=== PATIENT | female | born 1995 | race Caucasian/White ===

== ENCOUNTER 2016-11-17 07:58 | Emergency (ER) | payer MEDICAID ==
[~2016-11-17] VITALS: Ht 157.5 cm; Wt 80.9 kg
[~2016-11-17 07:58] MED LIST: HYDR2TAB13 PO; PREN1CAP15 PO
[2016-11-17 08:01] VITALS: BP 117/79
[2016-11-17] MEDS ORDERED: BUPIVACAINE/PF 0.5% ONE (08:28)
[2016-11-17] MEDS ORDERED: LIDOCAINE 1%, 20ML ONE (08:28)
[2016-11-17] MEDS ORDERED: SILVER NITRATE STICK TP ONE (09:04)
[2016-11-17] MEDS ORDERED: BUPIVACAINE 0.25% INFIL ONE (10:00)
[2016-11-17] MEDS ORDERED: LIDOCAINE 1%, 20ML INFIL ONE (10:00)
== END 2016-11-17 09:52 | disposition home or self-care (01) ==
LOC: ED 09:12
DX: S91.201A Unspecified open wound of right great toe with damage to nail, initial encounter (principal); Z90.49 Acquired absence of other specified parts of digestive tract; X58.XXXA Exposure to other specified factors, initial encounter; Y93.89 Activity, other specified; Y92.89 Other specified places as the place of occurrence of the external cause; Y99.8 Other external cause status
CPT/HCPCS: 11750

== ENCOUNTER 2017-02-10 12:42 | Emergency (ER) | payer MEDICAID ==
[~2017-02-10] VITALS: Ht 154.9 cm; Wt 84.8 kg
[~2017-02-10 12:42] MED LIST changes: -HYDR2TAB13 PO; +HYDR2TAB29 PO
[2017-02-10 12:52] VITALS: BP 117/78
[2017-02-10 14:36] LABS: HEMATOCRIT 44.7 % (34.6-47.8); HEMOGLOBIN 14.6 g/dL (11.7-16.4); WHITE BLOOD COUNT 8.6 x10^3/uL (3.4-10)
[2017-02-10 14:44] LABS: ASPARTATE AMINO TRANSFERASE 14 U/L (15-37); BLOOD UREA NITROGEN 10 mg/dL (7-18)
[2017-02-10] MEDS ORDERED: ALBU18HF INH (14:45)
[2017-02-10 15:42] LABS: PATH.CAST-FLAG NOT PRESENT; SPERM-FLAG NOT PRESENT; SRC-FLAG NOT PRESENT; XTAL-FLAG NOT PRESENT; YLC-FLAG NOT PRESENT
== END 2017-02-10 15:38 | disposition home or self-care (01) ==
LOC: ED 14:51
DX: R10.11 Right upper quadrant pain (principal); R19.7 Diarrhea, unspecified; R11.0 Nausea; J45.909 Unspecified asthma, uncomplicated; F12.10 Cannabis abuse, uncomplicated
CPT/HCPCS: 36415; 80053; 81001; 83690; 84703; 85025; 99284

== ENCOUNTER 2017-02-13 07:16 | Emergency (ER) | payer MEDICAID ==
[~2017-02-13] VITALS: Ht 154.9 cm; Wt 85.0 kg
[~2017-02-13 07:16] MED LIST changes: +ALBU18HF INH
[2017-02-13] MEDS ORDERED: ONDANSETRON 2MG/ML, 2ML ONE (07:47)
[2017-02-13] MEDS ORDERED: SODIUM CHLORIDE 0.9% 1,000ML IVBOLUS ONE (08:00)
[2017-02-13] MEDS ORDERED: ONDANSETRON 2MG/ML, 2ML IVPush ONE (08:00)
[2017-02-13] MEDS ORDERED: SODIUM CHLORIDE FLUSH 10ML SYR IVF ONE (08:00)
[2017-02-13 08:14] LABS: HEMOGLOBIN 14.3 g/dL (11.7-16.4); WHITE BLOOD COUNT 7.5 x10^3/uL (3.4-10)
[2017-02-13 08:25] LABS: ASPARTATE AMINO TRANSFERASE 18 U/L (15-37); BLOOD UREA NITROGEN 7 mg/dL (7-18)
[2017-02-13] MEDS ORDERED: OMNIPAQUE 350 MG/ML, 100ML BOTTLE ONE (09:12)
[2017-02-13 09:53] VITALS: BP 112/75
== END 2017-02-13 10:08 | disposition home or self-care (01) ==
LOC: ED 07:43
DX: R10.13 Epigastric pain (principal); J45.909 Unspecified asthma, uncomplicated
CPT/HCPCS: 36415; 74177; 76700; 80053; 81001; 83690; 84703; 85025; 85610; 96361; 96374; 99285; J2405; J7030; Q9967

== ENCOUNTER 2017-08-18 18:47 | Emergency (ER) | payer MEDICAID, OTHER ==
[~2017-08-18] VITALS: Ht 157.5 cm; Wt 89.9 kg
[2017-08-18 19:03] VITALS: BP 113/75
== END 2017-08-18 22:15 | disposition home or self-care (01) ==
LOC: ED 22:09
DX: S16.1XXA Strain of muscle, fascia and tendon at neck level, initial encounter (principal); M62.830 Muscle spasm of back; J45.909 Unspecified asthma, uncomplicated; Z90.49 Acquired absence of other specified parts of digestive tract; V89.2XXA Person injured in unspecified motor-vehicle accident, traffic, initial encounter; Y93.89 Activity, other specified; Y92.89 Other specified places as the place of occurrence of the external cause; Y99.9 Unspecified external cause status
CPT/HCPCS: 72050; 72072; 99284

== ENCOUNTER 2017-09-13 09:43 | Emergency (ER) | payer MEDICAID, OTHER ==
[~2017-09-13] VITALS: Ht 157.5 cm; Wt 88.2 kg
[2017-09-13] MEDS ORDERED: MAALOX/HYOSCYAMINE/LIDOCAINE 45 ML BTL PO ONE (11:00)
[2017-09-13 11:19] LABS: BASOPHILS # (AUTO) 0.02 x10^3/uL (0-0.1); BASOPHILS % (AUTO) 0 % (0-1); EOSINOPHILS % (AUTO) 3 % (1-7); LYMPHOCYTES # (AUTO) 2.11 x10^3/uL (1-3.4); LYMPHOCYTES % (AUTO) 31 % (22-44); MD NO; MEAN CORPUSCULAR HEMOGLOBIN 28.6 pg (27.0-34.8); MEAN CORPUSCULAR VOLUME 84.3 fL (80-100); MEAN PLATELET VOLUME 7.4 fL (7.4-10.4); MONOCYTES % (AUTO) 6 % (2-9); NEUTROPHILS # (AUTO) 4.15 x10^3/uL (1.8-6.8); NEUTROPHILS % (AUTO) 60 % (42-75); PLATELET COUNT 366 x10^3/uL (130-400); RED BLOOD COUNT 4.71 x10^6/uL (3.82-5.3); RED CELL DISTRIBUTION WIDTH 14.3 % (9.6-15.2)
[2017-09-13 11:27] LABS: INTERNATIONAL NORMALIZED RATIO 1.02 (0.93-1.1); PROTHROMBIN TIME 10.6 Seconds (9.6-11.5)
[2017-09-13 11:32] LABS: ALANINE AMINOTRANSFERASE 22 U/L (12-78); ALBUMIN 3.7 g/dL (3.4-5.0); ANION GAP 7 mmol/L (5-15); CALCIUM 8.8 mg/dL (8.5-10.1); CHLORIDE 109 mmol/L (98-107)
[2017-09-13 11:37] LABS: ALKALINE PHOSPHATASE 70 U/L (45-117); BILIRUBIN,TOTAL 0.6 mg/dL (0.2-1.0); TOTAL PROTEIN 7.4 g/dL (6.4-8.2)
[2017-09-13] MEDS ORDERED: MAALOX/HYOSCYAMINE/LIDOCAINE 45 ML BTL ONE (12:06)
[2017-09-13 14:07] VITALS: BP 114/74
== END 2017-09-13 14:09 | disposition home or self-care (01) ==
LOC: ED 10:47
DX: R10.11 Right upper quadrant pain (principal); R10.13 Epigastric pain; Z90.49 Acquired absence of other specified parts of digestive tract
CPT/HCPCS: 36415; 74021; 80053; 83690; 84703; 85025; 85610; 99285

== ENCOUNTER 2018-05-20 15:43 | Emergency (ER) | payer MEDICAID ==
[~2018-05-20] VITALS: Ht 157.5 cm; Wt 86.0 kg
[2018-05-20 15:48] VITALS: BP 125/75
[2018-05-20] MEDS ORDERED: HYDROcodone/APAP 5/325 TABLET PO ONE (16:30)
== END 2018-05-20 16:34 | disposition home or self-care (01) ==
LOC: ED 16:28
DX: S63.512A Sprain of carpal joint of left wrist, initial encounter (principal); X58.XXXA Exposure to other specified factors, initial encounter; Y93.89 Activity, other specified; Y92.69 Other specified industrial and construction area as the place of occurrence of the external cause; Y99.8 Other external cause status
CPT/HCPCS: 99283

== ENCOUNTER 2018-06-16 11:14 | Emergency (ER) | payer MEDICAID ==
[~2018-06-16] VITALS: Ht 157.5 cm; Wt 86.0 kg
[2018-06-16 11:39] VITALS: BP 108/69
[2018-06-16 12:01] LABS: BASOPHILS # (AUTO) 0.07 x10^3/uL (0-0.1); BASOPHILS % (AUTO) 1 % (0-1); EOSINOPHILS # (AUTO) 0.26 x10^3/uL (0-0.4); EOSINOPHILS % (AUTO) 3 % (1-7); LYMPHOCYTES % (AUTO) 25 % (22-44); MD NO; MEAN CORPUSCULAR HEMOGLOBIN 29.5 pg (27.0-34.8); MEAN CORPUSCULAR HGB CONC 34.1 g/dL (32.4-35.8); MEAN CORPUSCULAR VOLUME 86.6 fL (80-100); MEAN PLATELET VOLUME 7.3 fL (7.4-10.4); MONOCYTES # (AUTO) 0.44 x10^3/uL (0.2-0.8); MONOCYTES % (AUTO) 5 % (2-9); NEUTROPHILS # (AUTO) 5.58 x10^3/uL (1.8-6.8); NEUTROPHILS % (AUTO) 66 % (42-75); PLATELET COUNT 361 x10^3/uL (130-400); RED BLOOD COUNT 4.45 x10^6/uL (3.82-5.3); RED CELL DISTRIBUTION WIDTH 14.8 % (9.6-15.2)
[2018-06-16 12:26] LABS: MICROSCOPIC NOT IND
[2018-06-16 12:29] LABS: CULTURE INDICATED? NO
== END 2018-06-16 14:56 | disposition home or self-care (01) ==
LOC: ED 12:58
DX: O20.0 Threatened abortion (principal); M54.5 Low back pain; J45.909 Unspecified asthma, uncomplicated; G43.909 Migraine, unspecified, not intractable, without status migrainosus; Z3A.01 Less than 8 weeks gestation of pregnancy; Z90.49 Acquired absence of other specified parts of digestive tract; Z98.890 Other specified postprocedural states; Z90.89 Acquired absence of other organs
CPT/HCPCS: 36415; 76801; 81003; 84702; 85025; 86901; 99284

== ENCOUNTER 2018-10-28 19:02 | Emergency (ER) | payer MEDICAID ==
[~2018-10-28] VITALS: Ht 157.5 cm; Wt 85.0 kg
[2018-10-28] MEDS ORDERED: PLEASE ENTER HEIGHT AND WEIGHT MC SCH (19:30)
[2018-10-28] MEDS ORDERED: LORazepam 1MG TABLET PO ONE (19:30)
[2018-10-28] MEDS ORDERED: LEVO112T4 PO (19:38)
--- NOTE | 2018-10-28 19:38 | NUR ---
PT IS TEARING ALL BLOOD LABS WERE DRAWN FAMILY AT BED SIDE PSYCHIC CONSULT NOW
[2018-10-28 19:39] LABS: BASOPHILS # (AUTO) 0.05 x10^3/uL (0-0.1); BASOPHILS % (AUTO) 1 % (0-1); EOSINOPHILS # (AUTO) 0.34 x10^3/uL (0-0.4); EOSINOPHILS % (AUTO) 4 % (1-7); LYMPHOCYTES # (AUTO) 2.36 x10^3/uL (1-3.4); LYMPHOCYTES % (AUTO) 26 % (22-44); MD NO; MEAN CORPUSCULAR HGB CONC 34.3 g/dL (32.4-35.8); MEAN CORPUSCULAR VOLUME 84.6 fL (80-100); MEAN PLATELET VOLUME 7.4 fL (7.4-10.4); MONOCYTES # (AUTO) 0.54 x10^3/uL (0.2-0.8); MONOCYTES % (AUTO) 6 % (2-9); NEUTROPHILS # (AUTO) 5.66 x10^3/uL (1.8-6.8); NEUTROPHILS % (AUTO) 63 % (42-75); PLATELET COUNT 401 x10^3/uL (130-400); RED BLOOD COUNT 4.75 x10^6/uL (3.82-5.3); RED CELL DISTRIBUTION WIDTH 13.9 % (9.6-15.2)
[2018-10-28] MEDS ORDERED: LORazepam 1MG TABLET ONE (19:41)
[2018-10-28 19:48] LABS: ALANINE AMINOTRANSFERASE 23 U/L (12-78); ALBUMIN 3.9 g/dL (3.4-5.0); ANION GAP 8 mmol/L (5-15); CALCIUM 9.2 mg/dL (8.5-10.1); CHLORIDE 109 mmol/L (98-107); CREATININE 0.79 mg/dL (0.55-1.02)
[2018-10-28 19:49] LABS: SALICYLATE LEVEL < 1.7 mg/dL (2.8-20.0)
[2018-10-28 19:50] LABS: ACETAMINOPHEN < 2 mcg/mL (10-30)
[2018-10-28 19:52] LABS: AMPHETAMINE SCREEN, URINE Negative (Negative); BARBITURATE SCREEN, URINE Negative (Negative); BENZODIAZEPINE SCREEN, URINE Positive (Negative); CANNABINOID SCREEN, URINE Negative (Negative); COCAINE SCREEN, URINE Negative (Negative); METHADONE SCREEN, URINE Negative (Negative); OPIATE SCREEN, URINE Negative (Negative)
[2018-10-28 19:53] LABS: ALKALINE PHOSPHATASE 74 U/L (45-117); BILIRUBIN,TOTAL 0.3 mg/dL (0.2-1.0); TOTAL PROTEIN 7.6 g/dL (6.4-8.2)
--- NOTE | 2018-10-28 19:58 | NUR ---
[facility] CALLED, WATING FOR RESPONSE.
--- NOTE | 2018-10-28 20:20 | NUR ---
REPORT TO CROW I DISPATCHER. STAFF MEMBER TO RESPOND TO ER TO SEE PT ETA 9:30-10:00 PM
[2018-10-28 20:27] VITALS: BP 132/89
--- NOTE | 2018-10-28 20:28 | NUR ---
PT STATES SHE IS FEELING MUCH BETTER. NO LONGER TEARY, INTERACTING WITH FAMILY. PROVIDED SNACKS.
--- NOTE | 2018-10-28 22:11 | NUR ---
[facility] AT BEDSIDE.
--- NOTE | 2018-10-28 22:37 | NUR ---
PT HAS RECEIVED [facility] ASSESSMENT. PT MOVED TO TR01.
== END 2018-10-28 22:54 | disposition home or self-care (01) ==
LOC: ED 20:48
DX: F41.1 Generalized anxiety disorder (principal); Z90.49 Acquired absence of other specified parts of digestive tract; J45.909 Unspecified asthma, uncomplicated
CPT/HCPCS: 36415; 80053; 80307; 80329; 84443; 84703; 85025; 93005; 99284; G0480

== ENCOUNTER 2018-12-20 18:49 | Emergency (ER) | payer MEDICAID ==
[~2018-12-20] VITALS: Ht 154.9 cm; Wt 89.8 kg
[~2018-12-20 18:49] MED LIST changes: +LEVO112T4 PO
--- NOTE | 2018-12-20 19:17 | NUR ---
ASSUMED CARE OF PT AT THIS TIME. PT STEADY UPON AMBULATION TO ROOM. NAD NOTED. IRVIN MCCALL AT BEDSIDE. LMP 10/25/18. G - 4 P - 1 A - 2. THIS IS A 23 YO FEMALE C/O ABD CRAMPING WITH SPOTTING SINCE THIS MORNING. PT SEEN AT OB'S OFFICE AT 1000 WITH TRANSVAG US AND WAS TOLD "EVERYTHING LOOKED GOOD". PT REPORTS WORSENING BLEEDING AND SPOTTING "WITH CLOTS". PT AO X 4. SKIN PWD. RESP EVEN AND UNLABORED. CALL LIGHT WITHIN REACH. WILL CONT TO MONITOR PT.
[2018-12-20 19:31] LABS: BASOPHILS # (AUTO) 0.06 x10^3/uL (0-0.1); BASOPHILS % (AUTO) 1 % (0-1); EOSINOPHILS # (AUTO) 0.43 x10^3/uL (0-0.4); EOSINOPHILS % (AUTO) 4 % (1-7); LYMPHOCYTES # (AUTO) 2.42 x10^3/uL (1-3.4); LYMPHOCYTES % (AUTO) 23 % (22-44); MD NO; MEAN CORPUSCULAR HEMOGLOBIN 29.8 pg (27.0-34.8); MEAN CORPUSCULAR HGB CONC 33.1 g/dL (32.4-35.8); MEAN CORPUSCULAR VOLUME 90.2 fL (80-100); MEAN PLATELET VOLUME 7.4 fL (7.4-10.4); MONOCYTES # (AUTO) 0.57 x10^3/uL (0.2-0.8); MONOCYTES % (AUTO) 6 % (2-9); NEUTROPHILS % (AUTO) 67 % (42-75); PLATELET COUNT 396 x10^3/uL (130-400); RED BLOOD COUNT 4.57 x10^6/uL (3.82-5.3); RED CELL DISTRIBUTION WIDTH 14.4 % (9.6-15.2)
[2018-12-20 19:39] LABS: ALANINE AMINOTRANSFERASE 22 U/L (12-78); ALBUMIN 3.7 g/dL (3.4-5.0); ANION GAP 6 mmol/L (5-15); CHLORIDE 109 mmol/L (98-107); CREATININE 0.78 mg/dL (0.55-1.02)
[2018-12-20 19:56] LABS: ALKALINE PHOSPHATASE 66 U/L (45-117); BILIRUBIN,TOTAL 0.2 mg/dL (0.2-1.0); TOTAL PROTEIN 7.2 g/dL (6.4-8.2)
[2018-12-20 20:05] LABS: MICROSCOPIC AUTO
[2018-12-20 20:08] LABS: CULTURE INDICATED? NO
--- NOTE | 2018-12-20 20:30 | NUR ---
PT [place] RESTING ON GUREDMAR. NAD NOTED. SKIN PWD. REPS EVEN AND UNLABORED. PT AWARE THAT WE ARE WAITING FOR LAB/IMAGING RESULTS. CALL LIGHT WITHIN REACH. WILL CONT TO MONITOR PT.
[2018-12-20 20:57] VITALS: BP 126/74
== END 2018-12-20 20:59 | disposition home or self-care (01) ==
LOC: ED 19:48
DX: O03.9 Complete or unspecified spontaneous abortion without complication (principal); G43.909 Migraine, unspecified, not intractable, without status migrainosus; J45.909 Unspecified asthma, uncomplicated; Z90.49 Acquired absence of other specified parts of digestive tract
CPT/HCPCS: 36415; 76830; 80053; 81001; 84702; 85025; 99284

== ENCOUNTER 2019-07-05 22:19 | Emergency (ER) | payer SELFPAY ==
[~2019-07-05] VITALS: Ht 154.9 cm; Wt 86.4 kg
[2019-07-05] MEDS ORDERED: ACETAMINOPHEN 500 MG TABLET PO ONE (23:00)
[2019-07-05] MEDS ORDERED: IBUPROFEN 200 MG TABLET PO ONE (23:00)
[2019-07-05] MEDS ORDERED: MECLIZINE CHEWABLE 25 MG TAB PO ONE (23:00)
[2019-07-05] MEDS ORDERED: ACETAMINOPHEN 500 MG TABLET ONE (23:16)
[2019-07-05] MEDS ORDERED: IBUPROFEN 600 MG TABLET ONE (23:16)
[2019-07-05 23:21] LABS: BASOPHILS # (AUTO) 0.04 x10^3/uL (0-0.1); BASOPHILS % (AUTO) 1 % (0-1); EOSINOPHILS # (AUTO) 0.34 x10^3/uL (0-0.4); EOSINOPHILS % (AUTO) 4 % (1-7); LYMPHOCYTES # (AUTO) 2.92 x10^3/uL (1-3.4); LYMPHOCYTES % (AUTO) 34 % (22-44); MD NO; MEAN CORPUSCULAR HGB CONC 33.4 g/dL (32.4-35.8); MEAN CORPUSCULAR VOLUME 86.7 fL (80-100); MEAN PLATELET VOLUME 7.3 fL (7.4-10.4); MONOCYTES # (AUTO) 0.54 x10^3/uL (0.2-0.8); MONOCYTES % (AUTO) 6 % (2-9); NEUTROPHILS # (AUTO) 4.87 x10^3/uL (1.8-6.8); NEUTROPHILS % (AUTO) 56 % (42-75); PLATELET COUNT 343 x10^3/uL (130-400); RED BLOOD COUNT 4.55 x10^6/uL (3.82-5.3); RED CELL DISTRIBUTION WIDTH 13.9 % (9.6-15.2)
[2019-07-05 23:24] LABS: ALBUMIN 3.5 g/dL (3.4-5.0); ANION GAP 5 mmol/L (5-15); CALCIUM 8.8 mg/dL (8.5-10.1); CHLORIDE 109 mmol/L (98-107)
[2019-07-05 23:25] LABS: CREATININE 0.78 mg/dL (0.55-1.02)
[2019-07-05 23:41] LABS: HCG UR SG 1.035 (1.003-1.030)
[2019-07-05 23:53] VITALS: BP 125/77
--- NOTE | 2019-07-05 23:53 | NUR ---
PT RESTING ON GURNEY WITH BOYFRIEND. AWARE AWAITING RESULTS. VSS AND WILL CONT TO MONITOR.
== END 2019-07-06 00:54 | disposition home or self-care (01) ==
LOC: ED 07-06 00:11
DX: J00 Acute nasopharyngitis [common cold] (principal); R42 Dizziness and giddiness; G43.909 Migraine, unspecified, not intractable, without status migrainosus; J45.909 Unspecified asthma, uncomplicated; Z90.49 Acquired absence of other specified parts of digestive tract
CPT/HCPCS: 36415; 80048; 81025; 82040; 85025; 93005; 99284

== ENCOUNTER 2019-12-07 08:03 | Emergency (ER) | payer BC, MEDICAID ==
[~2019-12-07] VITALS: Ht 154.9 cm; Wt 89.6 kg
--- NOTE | 2019-12-07 08:47 | NUR ---
ER MARIJA BRYAN AT BEDSIDE. PT ASSESSMENT, POC DISCUSSED. PT +15WKS PREGANANT. SIENA LQ ABD PAIN STARTED THIS AM. DENIES VAG BLEEDING. HX G 6 - 1 - 4. PT OOB AMBULATED TO BATHROOM, URINE SAMPLE COLLECTED AND RTD TO ROOM W/O INCIDENT. VSS, PT TO US WITH TECH TRANSPORT. PT IS PRIMARY INDONESIAN SPEEKING. SISTER AT BEDSIDE FOR TRANSLATION PER PTS REQUEST. SISTER TO US WITH PT.
[2019-12-07 08:57] LABS: MICROSCOPIC NOT IND
--- NOTE | 2019-12-07 09:32 | NUR ---
TESTS RESULTED. CHART UP FOR RECHECK
[2019-12-07] MEDS ORDERED: ACETAMINOPHEN 325 MG TABLET ONE (09:48)
[2019-12-07 09:50] VITALS: BP 98/42
--- NOTE | 2019-12-07 09:50 | NUR ---
PT MED NOTED FOR PAIN 11/08
[2019-12-07] MEDS ORDERED: ACETAMINOPHEN 325 MG TABLET PO ONE (10:00)
--- NOTE | 2019-12-07 10:46 | NUR ---
Patient/Caregiver given discharge instructions and they have confirmed that they understand the instructions. Patient ambulatory with steady gait.
== END 2019-12-07 10:47 | disposition home or self-care (01) ==
LOC: ED 09:20
DX: O20.0 Threatened abortion (principal); O99.512 Diseases of the respiratory system complicating pregnancy, second trimester; J45.909 Unspecified asthma, uncomplicated; Z3A.15 15 weeks gestation of pregnancy; Z90.89 Acquired absence of other organs; Z90.49 Acquired absence of other specified parts of digestive tract
CPT/HCPCS: 76815; 81003; 99284

== ENCOUNTER 2020-02-17 22:24 | Outpatient (CLI) | payer MEDICAID ==
[2020-02-17] MEDS ORDERED: ALUMINUM/MAG/SIMETHICONE 30 ML UDC ONE ×2 (23:03→23:16)
[2020-02-17] MEDS ORDERED: ALUMINUM/MAG/SIMETHICONE 30 ML UDC PO PRN (23:30)
== END 2020-02-17 23:55 | disposition home or self-care (01) ==
LOC: LDOP 22:24
PROVIDERS: ATTEND Obstetrics & Gynecology
DX: O26.899 Other specified pregnancy related conditions, unspecified trimester (principal); R10.9 Unspecified abdominal pain; R19.7 Diarrhea, unspecified; Z3A.00 Weeks of gestation of pregnancy not specified
CPT/HCPCS: 99211; G0463

== ENCOUNTER 2020-03-29 13:51 | Outpatient (CLI) | payer MEDICAID ==
[~2020-03-29] VITALS: Ht 157.5 cm; Wt 91.3 kg
[2020-03-29 14:02] VITALS: BP 95/55
[2020-03-29 14:37] LABS: MICROSCOPIC NOT IND
[2020-03-29 14:40] LABS: AMPHETAMINE SCREEN, URINE Negative (Negative); BARBITURATE SCREEN, URINE Negative (Negative); BENZODIAZEPINE SCREEN, URINE Negative (Negative); CANNABINOID SCREEN, URINE Negative (Negative); COCAINE SCREEN, URINE Negative (Negative); METHADONE SCREEN, URINE Negative (Negative); OPIATE SCREEN, URINE Negative (Negative)
== END 2020-03-29 15:41 | disposition home or self-care (01) ==
LOC: LDOP 13:51
PROVIDERS: ATTEND Obstetrics & Gynecology
DX: O26.893 Other specified pregnancy related conditions, third trimester (principal); Z3A.32 32 weeks gestation of pregnancy
CPT/HCPCS: 59025; 80307; 81003

== ENCOUNTER 2021-01-25 11:31 | Emergency (ER) | payer MEDICAID ==
[~2021-01-25] VITALS: Ht 157.5 cm; Wt 91.1 kg
[2021-01-25] MEDS ORDERED: MORPHINE SULFATE 4 MG/ML, 1ML IVPush PRN (12:00)
[2021-01-25] MEDS ORDERED: SODIUM CHLORIDE 0.9% 1,000ML IVBOLUS ONE ×2 (12:00→16:00)
[2021-01-25] MEDS ORDERED: SODIUM CHLORIDE FLUSH 10ML SYR IVF ONE (12:00)
[2021-01-25] MEDS ORDERED: ONDANSETRON 2MG/ML, 2ML IVPush ONE (12:00)
--- NOTE | 2021-01-25 12:08 | NUR ---
PT IN GOWN IN [facility]. PT ATTACHED TO VS MONITORS. VSS AT THIS TIME. PT EDUCATED ON ER PROCESS AND POC AND VERBALIZES UNDERSTANDING. PT WITH CALL LIGHT WITHIN REACH AT THIS TIME.
[2021-01-25 12:25] LABS: BASOPHILS % (AUTO) 0 % (0-1); EOSINOPHILS % (AUTO) 0 % (1-7); LYMPHOCYTES % (AUTO) 5 % (22-44); MEAN CORPUSCULAR HEMOGLOBIN 28.5 pg (27.0-34.8); MEAN CORPUSCULAR HGB CONC 34.2 g/dL (32.4-35.8); MEAN PLATELET VOLUME 7.1 fL (7.4-10.4); MONOCYTES % (AUTO) 5 % (2-9); NEUTROPHILS % (AUTO) 89 % (42-75); PLATELET COUNT 377 x10^3/uL (130-400); RED BLOOD COUNT 4.94 x10^6/uL (3.82-5.3); RED CELL DISTRIBUTION WIDTH 14.2 % (9.6-15.2)
[2021-01-25] MEDS ORDERED: ONDANSETRON 2MG/ML, 2ML ONE (12:37)
[2021-01-25] MEDS ORDERED: MORPHINE SULFATE 4 MG/ML, 1ML ONE (12:38)
--- NOTE | 2021-01-25 12:45 | NUR ---
PT MEDICATED PER MAR FOR NAUSEA. PT REFUSES MORPHINE DUE TO ACTIVELY . DR. FRANCISCO AWARE OF PT REQUEST, NO NEW ORDERS RECEIVED AT THIS TIME.
--- NOTE | 2021-01-25 12:53 | NUR ---
PT VSS AND UPDATED IN EMR.
[2021-01-25 13:06] LABS: ALANINE AMINOTRANSFERASE 26 U/L (12-78); ALBUMIN 3.8 g/dL (3.4-5.0); ANION GAP 5 mmol/L (5-15); CALCIUM 8.8 mg/dL (8.5-10.1); CHLORIDE 109 mmol/L (98-107); CREATININE 0.75 mg/dL (0.55-1.02)
[2021-01-25 13:10] LABS: ALKALINE PHOSPHATASE 103 U/L (45-117); BILIRUBIN,TOTAL 0.6 mg/dL (0.2-1.0); TOTAL PROTEIN 8.2 g/dL (6.4-8.2)
[2021-01-25] MEDS ORDERED: OMNIPAQUE 350 MG/ML, 100ML BOTTLE ONE (13:57)
--- NOTE | 2021-01-25 13:58 | NUR ---
PT RETURNED FROM CT. RESP EVEN AND UNLABORED, NADN.
--- NOTE | 2021-01-25 14:17 | NUR ---
PT AMBULATORY W/ A STEADY GAIT TO BR TO ATTEMPT URINE SAMPLE.
[2021-01-25 14:44] LABS: MICROSCOPIC NOT IND
--- NOTE | 2021-01-25 15:11 | NUR ---
PT SITTING UP IN BED WITH ON HER LAP. PT REPORTS RELIEF FROM PAIN FOLLOWING ICE CHIPS. RESPIRATIONS EVEN AND UNLABORED ON RA. PARTNER AT BEDSIDE, GOING TO GET DIAPERS FROM CAR. AWAITING UA.
--- NOTE | 2021-01-25 15:42 | NUR ---
PT CHART UP FOR RECHECK.
--- NOTE | 2021-01-25 15:56 | NUR ---
NEW IV BAG HUNG, INITIAL ONE LITER COMPLETED. NAD NOTED AT THIS TIME. PT LAYING BACK IN BED EATING APPLES. PARTNER AT BEDSIDE.
[2021-01-25 17:29] VITALS: BP 129/78
== END 2021-01-25 17:31 | disposition home or self-care (01) ==
LOC: ED 13:32
DX: K29.50 Unspecified chronic gastritis without bleeding (principal); R00.0 Tachycardia, unspecified
CPT/HCPCS: 36415; 74177; 80053; 81003; 84703; 85025; 93005; 96361; 96374; 99285; J2405; J7030; Q9967